=== PATIENT | male | born 1960 | race Caucasian/White ===

== ENCOUNTER 2020-02-05 07:01 | Outpatient (CLI) | payer OTHER, SELFPAY ==
[2020-02-06 01:03] LABS: SARS-CoV-2 RNA PCR Positive
== END 2020-02-05 07:02 | disposition home or self-care (01) ==
PROVIDERS: PCP Internal Medicine; Visit Provider Internal Medicine
DX: U07.1 COVID-19 (principal)
CPT/HCPCS: 87635; C9803; U0003

== ENCOUNTER 2021-07-24 15:51 | Outpatient (RCR) | payer OTHER, SELFPAY ==
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
== END 2021-09-13 15:56 | disposition home or self-care (01) ==
LOC: CHSPT 15:51
PROVIDERS: PCP Internal Medicine; Visit Provider Internal Medicine
DX: S38.1XXA Crushing injury of abdomen, lower back, and pelvis, initial encounter (principal)
CPT/HCPCS: 97110; 97112; 97161; 97530